=== PATIENT | male | born 1995 | race African-American/Black ===

== ENCOUNTER 2017-05-17 18:50 | Emergency (ER) | payer MEDICAID ==
[~2017-05-17] VITALS: Ht 172.7 cm; Wt 73.0 kg
[2017-05-17 20:21] LABS: BASOPHILS % 0.8 % (0.0-2.0); EOSINOPHILS % 3.5 % (0.0-5.0); HEMATOCRIT. 37.4 % (42.0-52.0); HEMOGLOBIN. 12.5 g/dL (14.0-18.0); LYMPHOCYTES % 28.8 % (20.0-50.0); MEAN CORPUSCULAR HEMOGLOBIN 28.1 pg (28.0-32.0); MEAN CORPUSCULAR VOLUME 83.9 fL (80.0-94.0); MEAN PLATELET VOLUME 9.4 fl (7.4-10.4); MONOCYTES % 7.4 % (2.0-8.0); NEUTROPHILS % 59.5 % (40.0-76.0); PLATELET 185 x1000/uL (130-400); RED BLOOD CELL COUNT 4.45 mill/uL (4.7-6.1); RED CELL DISTRIBUTION WIDTH 13.1 % (11.6-14.6)
[2017-05-17 20:32] LABS: CARBON DIOXIDE 26 mEq/L (21-32); CHLORIDE 104 mEq/L (98-107); TROPONIN I < 0.02 ng/mL (0.00-0.04)
[2017-05-17 20:48] LABS: *AMPHETAMINES SCREEN URINE NEGATIVE (NEGATIVE); *BARBITURATES SCREEN URINE NEGATIVE (NEGATIVE); *BENZODIAZEPINES SCREEN URINE NEGATIVE (NEGATIVE); *COCAINE SCREEN URINE NEGATIVE (NEGATIVE); CANNABINOID URINE SCREEN PRESUMTIVE POSITIVE (NEGATIVE); METHADONE URINE SCREEN NEGATIVE (NEGATIVE); OPIATES URINE SCREEN NEGATIVE (NEGATIVE); PHENCYCLIDINE URINE SCREEN NEGATIVE (NEGATIVE)
[2017-05-17 23:06] VITALS: BP 121/79
== END 2017-05-17 23:07 | disposition home or self-care (01) ==
LOC: ER 19:02
DX: R07.89 Other chest pain (principal); I34.0 Nonrheumatic mitral (valve) insufficiency
CPT/HCPCS: 36415; 71010; 80053; 80305; 84484; 85025; 85379; 93005; 99285

== ENCOUNTER 2018-08-30 10:40 | Emergency (ER) | payer MEDICAID ==
[~2018-08-30] VITALS: Ht 175.3 cm; Wt 64.0 kg
[2018-08-30 11:08] VITALS: BP 116/53
[2018-08-30 13:38] LABS: *AMPHETAMINES SCREEN URINE NEGATIVE (NEGATIVE); *BARBITURATES SCREEN URINE NEGATIVE (NEGATIVE); *BENZODIAZEPINES SCREEN URINE NEGATIVE (NEGATIVE); *COCAINE SCREEN URINE NEGATIVE (NEGATIVE)
[2018-08-30 13:39] LABS: CANNABINOID URINE SCREEN PRESUMTIVE POSITIVE (NEGATIVE); METHADONE URINE SCREEN NEGATIVE (NEGATIVE); OPIATES URINE SCREEN NEGATIVE (NEGATIVE); PHENCYCLIDINE URINE SCREEN NEGATIVE (NEGATIVE)
== END 2018-08-30 14:07 | disposition home or self-care (01) ==
LOC: ER 10:40
DX: F12.10 Cannabis abuse, uncomplicated (principal)
CPT/HCPCS: 80305; 99283

== ENCOUNTER 2018-09-15 17:29 | Emergency (ER) | payer MEDICAID ==
[~2018-09-15] VITALS: Ht 175.3 cm; Wt 63.5 kg
[2018-09-15 18:41] VITALS: BP 118/76
== END 2018-09-16 02:16 | disposition left against medical advice (07) ==
LOC: ER 17:29
DX: Z53.21 Procedure and treatment not carried out due to patient leaving prior to being seen by health care provider (principal); F17.200 Nicotine dependence, unspecified, uncomplicated

== ENCOUNTER 2019-02-24 01:38 | Emergency (ER) | payer MEDICAID ==
[~2019-02-24] VITALS: Ht 172.7 cm; Wt 67.0 kg
[2019-02-24] MEDS ORDERED: SODIUM CHLORIDE 0.9% 1,000 ML IV ONE (02:12)
[2019-02-24 02:42] LABS: BASOPHILS % 1.1 % (0.0-2.0); EOSINOPHILS % 3.4 % (0.0-5.0); HEMATOCRIT. 38.5 % (42.0-52.0); HEMOGLOBIN. 12.8 g/dL (14.0-18.0); LYMPHOCYTES % 38.4 % (20.0-50.0); MEAN CORPUSCULAR HEMOGLOBIN 28.7 pg (28.0-32.0); MEAN CORPUSCULAR VOLUME 86.1 fL (80.0-94.0); MEAN PLATELET VOLUME 9.5 fl (7.4-10.4); MONOCYTES % 7.7 % (2.0-8.0); NEUTROPHILS % 49.4 % (40.0-76.0); PLATELET 221 x1000/uL (130-400); RED BLOOD CELL COUNT 4.47 mill/uL (4.7-6.1); RED CELL DISTRIBUTION WIDTH 13.2 % (11.6-14.6)
[2019-02-24 02:43] LABS: CHLORIDE 106 mEq/L (98-107)
[2019-02-24 02:47] LABS: ETHANOL BLOOD < 10 mg/dL
[2019-02-24 04:21] LABS: CLARITY URINE CLEAR (CLEAR); COLOR URINE YELLOW (YELLOW); KETONES URINE TRACE (NEGATIVE); LEUKOCYTE ESTERASE URINE NEGATIVE (NEGATIVE); NITRITE URINE NEGATIVE (NEGATIVE); OCCULT BLOOD URINE NEGATIVE (NEGATIVE); PH URINE 6.5 (4.5-8.0); PROTEIN URINE TRACE (NEGATIVE); SPECIFIC GRAVITY URINE 1.025 (1.005-1.030)
[2019-02-24 04:31] LABS: *AMPHETAMINES SCREEN URINE NEGATIVE (NEGATIVE); *BARBITURATES SCREEN URINE NEGATIVE (NEGATIVE); *BENZODIAZEPINES SCREEN URINE NEGATIVE (NEGATIVE); *COCAINE SCREEN URINE NEGATIVE (NEGATIVE); CANNABINOID URINE SCREEN PRESUMTIVE POSITIVE (NEGATIVE); METHADONE URINE SCREEN NEGATIVE (NEGATIVE); OPIATES URINE SCREEN NEGATIVE (NEGATIVE); PHENCYCLIDINE URINE SCREEN NEGATIVE (NEGATIVE)
[2019-02-24] MEDS: POTASSIUM CHLORIDE 20MEQ TABLET SR PO NR ×2 (04:40→04:41)
[2019-02-24 04:44] VITALS: BP 108/52
== END 2019-02-24 04:54 | disposition home or self-care (01) ==
LOC: ER 01:38
DX: T44.3X1A Poisoning by other parasympatholytics [anticholinergics and antimuscarinics] and spasmolytics, accidental (unintentional), initial encounter (principal); Y92.9 Unspecified place or not applicable
CPT/HCPCS: 36415; 80053; 80305; 80307; 80320; 80329; 81003; 84443; 85025; 93005; 99284; J7030; G0480

== ENCOUNTER 2019-04-29 05:12 | Emergency (ER) | payer MEDICAID ==
[~2019-04-29] VITALS: Ht 172.7 cm; Wt 65.0 kg
[2019-04-29 07:12] LABS: CLARITY URINE CLEAR (CLEAR); COLOR URINE YELLOW (YELLOW); KETONES URINE NEGATIVE (NEGATIVE); LEUKOCYTE ESTERASE URINE NEGATIVE (NEGATIVE); NITRITE URINE NEGATIVE (NEGATIVE); OCCULT BLOOD URINE NEGATIVE (NEGATIVE); PH URINE 6.5 (4.5-8.0); PROTEIN URINE NEGATIVE (NEGATIVE); SPECIFIC GRAVITY URINE 1.012 (1.005-1.030); UROBILINOGEN URINE 0.2 E.U./dL (0.2-1.0)
[2019-04-29 07:26] LABS: *AMPHETAMINES SCREEN URINE NEGATIVE (NEGATIVE); *BARBITURATES SCREEN URINE NEGATIVE (NEGATIVE); *BENZODIAZEPINES SCREEN URINE NEGATIVE (NEGATIVE); *COCAINE SCREEN URINE NEGATIVE (NEGATIVE); METHADONE URINE SCREEN NEGATIVE (NEGATIVE); OPIATES URINE SCREEN NEGATIVE (NEGATIVE); PHENCYCLIDINE URINE SCREEN NEGATIVE (NEGATIVE)
[2019-04-29 07:28] LABS: CANNABINOID URINE SCREEN NEGATIVE (NEGATIVE)
[2019-04-29 08:22] LABS: EOSINOPHILS % 3.3 % (0.0-5.0); HEMATOCRIT. 36.3 % (42.0-52.0); HEMOGLOBIN. 12.2 g/dL (14.0-18.0); LYMPHOCYTES % 23.1 % (20.0-50.0); MEAN CORPUSCULAR HEMOGLOBIN 28.8 pg (28.0-32.0); MEAN CORPUSCULAR VOLUME 85.4 fL (80.0-94.0); MEAN PLATELET VOLUME 9.2 fl (7.4-10.4); MONOCYTES % 9.9 % (2.0-8.0); NEUTROPHILS % 62.7 % (40.0-76.0); PLATELET 219 x1000/uL (130-400); RED BLOOD CELL COUNT 4.25 mill/uL (4.7-6.1); RED CELL DISTRIBUTION WIDTH 13.4 % (11.6-14.6)
[2019-04-29 08:28] LABS: CHLORIDE 106 mEq/L (98-107)
[2019-04-29 08:32] LABS: ETHANOL BLOOD < 10 mg/dL
[2019-04-30 13:30] VITALS: BP 128/58
== END 2019-04-30 13:46 | disposition home or self-care (01) ==
LOC: ER 05:12
DX: F32.9 Major depressive disorder, single episode, unspecified (principal); F12.10 Cannabis abuse, uncomplicated; R45.851 Suicidal ideations; R44.0 Auditory hallucinations; Z59.0 Homelessness
CPT/HCPCS: 36415; 80305; 80320; 81003; 99284; G0480

== ENCOUNTER 2019-07-26 00:35 | Emergency (ER) | payer MEDICAID ==
[~2019-07-26] VITALS: Ht 172.7 cm; Wt 64.0 kg
[2019-07-26 00:53] VITALS: BP 123/76
== END 2019-07-26 05:59 | disposition left against medical advice (07) ==
LOC: ER 00:35
DX: Z53.21 Procedure and treatment not carried out due to patient leaving prior to being seen by health care provider (principal); Z88.0 Allergy status to penicillin
CPT/HCPCS: 93005

== ENCOUNTER 2019-09-10 08:49 | Emergency (ER) | payer MEDICAID | END 2019-09-10 09:42 | disposition left against medical advice (07) | LOC: ER 08:54 | DX: Z53.21 Procedure and treatment not carried out due to patient leaving prior to being seen by health care provider (principal) ==

== ENCOUNTER 2020-03-30 02:39 | Emergency (ER) | payer MEDICAID ==
[~2020-03-30] VITALS: Ht 175.3 cm; Wt 67.0 kg
[2020-03-30 04:02] VITALS: BP 137/81
== END 2020-03-30 04:14 | disposition left against medical advice (07) ==
LOC: ER 02:39
DX: R07.89 Other chest pain (principal); Z53.21 Procedure and treatment not carried out due to patient leaving prior to being seen by health care provider
CPT/HCPCS: 93005

== ENCOUNTER 2020-04-10 18:23 | Emergency (ER) | payer OTHER, MEDICAID ==
[~2020-04-10] VITALS: Ht 175.3 cm; Wt 66.0 kg
[2020-04-10] MEDS ORDERED: IBUPROFEN 600MG TABLET PO ONE (19:30)
[2020-04-10 20:35] VITALS: BP 135/80
== END 2020-04-10 20:35 | disposition home or self-care (01) ==
LOC: ER 18:23
DX: S62.396A Other fracture of fifth metacarpal bone, right hand, initial encounter for closed fracture (principal); W22.01XA Walked into wall, initial encounter; Y93.9 Activity, unspecified; Y92.9 Unspecified place or not applicable; Z88.0 Allergy status to penicillin
CPT/HCPCS: 29125; 73130; 99283

== ENCOUNTER 2020-06-11 22:20 | Emergency (ER) | payer OTHER, MEDICAID ==
[~2020-06-11] VITALS: Ht 175.3 cm; Wt 68.0 kg
[2020-06-11 22:23] VITALS: BP 144/77
== END 2020-06-11 22:45 | disposition left against medical advice (07) ==
LOC: ER 22:20
DX: Z53.21 Procedure and treatment not carried out due to patient leaving prior to being seen by health care provider (principal); Z88.0 Allergy status to penicillin
CPT/HCPCS: 93005

== ENCOUNTER 2020-06-15 14:35 | Emergency (ER) | payer OTHER, MEDICAID ==
[~2020-06-15] VITALS: Ht 175.3 cm; Wt 75.0 kg
[2020-06-15] MEDS ORDERED: ACETAMINOPHEN 325MG TABLET PO ONE (17:15)
[2020-06-15] MEDS ORDERED: HYDROCODONE/ACETAMINOPHEN 5/325MG TABLET PO ONE (18:45)
[2020-06-15 19:00] VITALS: BP 134/88
== END 2020-06-15 19:14 | disposition home or self-care (01) ==
LOC: ER 14:44
DX: S02.609A Fracture of mandible, unspecified, initial encounter for closed fracture (principal); F12.10 Cannabis abuse, uncomplicated; Z88.0 Allergy status to penicillin; X58.XXXA Exposure to other specified factors, initial encounter; Y93.89 Activity, other specified; Y92.89 Other specified places as the place of occurrence of the external cause; Y99.8 Other external cause status
CPT/HCPCS: 70110; 99283

== ENCOUNTER 2020-06-19 15:49 | Emergency (ER) | payer OTHER, MEDICAID ==
[~2020-06-19] VITALS: Ht 175.3 cm; Wt 68.0 kg
[2020-06-19 15:51] VITALS: BP 147/86
== END 2020-06-19 16:48 | disposition home or self-care (01) ==
LOC: ER 15:49
DX: R51.9 Headache, unspecified (principal); Z53.21 Procedure and treatment not carried out due to patient leaving prior to being seen by health care provider

== ENCOUNTER 2020-06-30 19:36 | Emergency (ER) | payer OTHER, MEDICAID ==
[~2020-06-30] VITALS: Ht 175.3 cm; Wt 68.0 kg
[2020-06-30 19:38] VITALS: BP 131/73
== END 2020-07-01 02:45 | disposition left against medical advice (07) ==
LOC: ER 19:36
DX: R07.89 Other chest pain (principal); Z53.21 Procedure and treatment not carried out due to patient leaving prior to being seen by health care provider
CPT/HCPCS: 93005

== ENCOUNTER 2020-09-01 18:48 | Emergency (ER) | payer OTHER, MEDICAID ==
[~2020-09-01] VITALS: Ht 170.2 cm; Wt 67.0 kg
[2020-09-01 19:41] VITALS: BP 129/64
[2020-09-01] MEDS ORDERED: TRIA15CR61 TP (20:02)
== END 2020-09-01 20:23 | disposition home or self-care (01) ==
LOC: ER 18:48
DX: L91.0 Hypertrophic scar (principal); F12.10 Cannabis abuse, uncomplicated; Z88.0 Allergy status to penicillin
CPT/HCPCS: 99282

== ENCOUNTER 2020-09-17 21:17 | Emergency (ER) | payer OTHER, MEDICAID ==
[~2020-09-17] VITALS: Ht 177.8 cm; Wt 70.0 kg
[~2020-09-17 21:17] MED LIST: TRIA15CR61 TP
[2020-09-17 21:57] VITALS: BP 115/76
== END 2020-09-17 22:36 | disposition home or self-care (01) ==
LOC: ER 21:17
DX: R42 Dizziness and giddiness (principal); F10.10 Alcohol abuse, uncomplicated; Y90.9 Presence of alcohol in blood, level not specified
CPT/HCPCS: 99281

== ENCOUNTER 2020-10-13 11:33 | Emergency (ER) | payer OTHER, MEDICAID ==
[~2020-10-13] VITALS: Ht 172.7 cm; Wt 68.0 kg
[2020-10-13] MEDS ORDERED: ACETAMINOPHEN 325MG TABLET PO ONE (12:30)
[2020-10-13 13:03] LABS: BASOPHILS % 1.1 % (0.0-2.0); EOSINOPHILS % 3.7 % (0.0-5.0); HEMATOCRIT. 36.9 % (42.0-52.0); HEMOGLOBIN. 11.9 g/dL (14.0-18.0); LYMPHOCYTES % 44.7 % (20.0-50.0); MEAN CORPUSCULAR HEMOGLOBIN 28.2 pg (28.0-32.0); MEAN CORPUSCULAR VOLUME 87.1 fL (80.0-94.0); MEAN PLATELET VOLUME 9.6 fl (7.4-10.4); MONOCYTES % 8.1 % (2.0-8.0); NEUTROPHILS % 42.4 % (40.0-76.0); PLATELET 165 x1000/uL (130-400); RED BLOOD CELL COUNT 4.23 mill/uL (4.7-6.1); RED CELL DISTRIBUTION WIDTH 14.2 % (11.6-14.6)
[2020-10-13 13:08] LABS: CHLORIDE 109 mEq/L (98-107)
[2020-10-13 15:22] VITALS: BP 104/60
== END 2020-10-13 15:25 | disposition home or self-care (01) ==
LOC: ER 11:33
DX: R68.84 Jaw pain (principal); R07.89 Other chest pain; F12.10 Cannabis abuse, uncomplicated; Z88.0 Allergy status to penicillin; Y04.0XXA Assault by unarmed brawl or fight, initial encounter; Y93.89 Activity, other specified; Y92.89 Other specified places as the place of occurrence of the external cause
CPT/HCPCS: 36415; 71045; 80053; 83880; 84484; 85025; 93005; 99285

== ENCOUNTER 2020-10-18 12:28 | Emergency (ER) | payer OTHER, MEDICAID ==
[~2020-10-18] VITALS: Ht 177.8 cm; Wt 68.0 kg
[2020-10-18] MEDS ORDERED: NAPROXEN 375MG TABLET PO ONE (13:00)
[2020-10-18] MEDS ORDERED: NAPR-1098 PO (13:15)
[2020-10-18 13:38] VITALS: BP 111/65
== END 2020-10-18 13:39 | disposition home or self-care (01) ==
LOC: ER 12:28
DX: R68.84 Jaw pain (principal)
CPT/HCPCS: 99282

== ENCOUNTER 2021-03-14 15:58 | Emergency (ER) | payer MEDICAID, OTHER ==
[~2021-03-14] VITALS: Ht 172.7 cm; Wt 65.0 kg
[~2021-03-14 15:58] MED LIST changes: +NAPR-1098 PO
[2021-03-14] MEDS ORDERED: ACETAMINOPHEN 325MG TABLET PO ONE (16:45)
[2021-03-14 17:54] VITALS: BP 106/83
== END 2021-03-14 17:55 | disposition home or self-care (01) ==
LOC: ER 15:58
DX: S00.81XA Abrasion of other part of head, initial encounter (principal); S03.2XXA Dislocation of tooth, initial encounter; M79.18 Myalgia, other site; Y08.89XA Assault by other specified means, initial encounter; Y93.89 Activity, other specified; Y92.9 Unspecified place or not applicable; Z88.0 Allergy status to penicillin
CPT/HCPCS: 99284

== ENCOUNTER 2021-06-03 13:46 | Emergency (ER) | payer MEDICAID ==
[~2021-06-03] VITALS: Ht 172.7 cm; Wt 59.0 kg
[2021-06-03 14:01] VITALS: BP 139/58
== END 2021-06-03 18:14 | disposition left against medical advice (07) ==
LOC: ER 13:46
DX: Z53.21 Procedure and treatment not carried out due to patient leaving prior to being seen by health care provider (principal); Z88.0 Allergy status to penicillin
CPT/HCPCS: 93005

== ENCOUNTER 2021-06-09 19:16 | Emergency (ER) | payer MEDICAID ==
[~2021-06-09] VITALS: Ht 175.3 cm; Wt 62.6 kg
[2021-06-09 20:02] VITALS: BP 110/67
== END 2021-06-09 22:39 | disposition left against medical advice (07) ==
LOC: ER 19:16
DX: R53.1 Weakness (principal)
CPT/HCPCS: 93005

== ENCOUNTER 2021-09-28 23:45 | Emergency (ER) | payer MEDICAID ==
[~2021-09-28] VITALS: Ht 175.3 cm; Wt 63.0 kg
[2021-09-29] MEDS ORDERED: IBUPROFEN 600MG TABLET PO STA (01:42)
[2021-09-29 01:52] VITALS: BP 102/54
[2021-09-29 03:22] LABS: BASOPHILS % 1.1 % (0.0-2.0); EOSINOPHILS % 7.2 % (0.0-5.0); HEMATOCRIT. 37.3 % (42.0-52.0); HEMOGLOBIN. 12.4 g/dL (14.0-18.0); LYMPHOCYTES % 48.6 % (20.0-50.0); MEAN CORPUSCULAR HEMOGLOBIN 28.4 pg (28.0-32.0); MEAN CORPUSCULAR VOLUME 85.6 fL (80.0-94.0); MEAN PLATELET VOLUME 9.1 fl (7.4-10.4); MONOCYTES % 9.4 % (2.0-8.0); NEUTROPHILS % 33.7 % (40.0-76.0); PLATELET 223 x1000/uL (130-400); RED BLOOD CELL COUNT 4.36 mill/uL (4.7-6.1)
[2021-09-29 03:29] LABS: CHLORIDE 108 mEq/L (98-107)
== END 2021-09-29 04:06 | disposition home or self-care (01) ==
LOC: ER 23:46
DX: R07.89 Other chest pain (principal); R06.02 Shortness of breath; F41.9 Anxiety disorder, unspecified; Z88.0 Allergy status to penicillin
CPT/HCPCS: 36415; 71045; 80053; 84484; 85025; 93005; 99285

== ENCOUNTER 2022-04-29 14:48 | Emergency (ER) | payer MEDICAID | END 2022-04-29 16:16 | disposition left against medical advice (07) | LOC: ER 15:15 | DX: Z53.21 Procedure and treatment not carried out due to patient leaving prior to being seen by health care provider (principal) ==

== ENCOUNTER 2022-07-01 15:12 | Emergency (ER) | payer MEDICARE, MEDICAID ==
[~2022-07-01] VITALS: Ht 175.3 cm; Wt 63.0 kg
[2022-07-01 15:27] VITALS: BP 106/73
[2022-07-01] MEDS ORDERED: CLAR10 MT (16:49)
== END 2022-07-01 17:14 | disposition home or self-care (01) ==
LOC: ER 15:45
DX: J06.9 Acute upper respiratory infection, unspecified (principal); F41.9 Anxiety disorder, unspecified; Z88.0 Allergy status to penicillin
CPT/HCPCS: 99282

== ENCOUNTER 2022-07-28 14:12 | Emergency (ER) | payer MEDICARE, MEDICAID ==
[~2022-07-28] VITALS: Ht 172.7 cm; Wt 70.0 kg
[~2022-07-28 14:12] MED LIST changes: +CLAR10 MT
[2022-07-28 14:44] VITALS: BP 114/64
== END 2022-07-28 14:56 | disposition left against medical advice (07) ==
LOC: ER 14:12
DX: Z53.21 Procedure and treatment not carried out due to patient leaving prior to being seen by health care provider (principal); F41.9 Anxiety disorder, unspecified; Z88.0 Allergy status to penicillin

== ENCOUNTER 2022-07-28 15:42 | Emergency (ER) | payer MEDICARE, MEDICAID ==
[~2022-07-28] VITALS: Ht 175.3 cm; Wt 62.0 kg
[2022-07-28 15:48] VITALS: BP 105/86
== END 2022-07-28 18:51 | disposition left against medical advice (07) ==
LOC: ER 15:42
DX: Z53.21 Procedure and treatment not carried out due to patient leaving prior to being seen by health care provider (principal); F41.9 Anxiety disorder, unspecified; Z88.0 Allergy status to penicillin

== ENCOUNTER 2022-09-17 18:56 | Emergency (ER) | payer MEDICARE, MEDICAID ==
[~2022-09-17] VITALS: Ht 175.3 cm; Wt 68.0 kg
[2022-09-17 19:27] VITALS: BP 128/85
== END 2022-09-17 20:00 | disposition left against medical advice (07) ==
LOC: ER 18:56
DX: Z53.21 Procedure and treatment not carried out due to patient leaving prior to being seen by health care provider (principal)

== ENCOUNTER 2022-09-26 10:24 | Emergency (ER) | payer MEDICARE, MEDICAID ==
[~2022-09-26] VITALS: Ht 172.7 cm; Wt 65.0 kg
[2022-09-26] MEDS ORDERED: KETOROLAC 15MG/ML VIAL IM ONE (13:45)
[2022-09-26] MEDS ORDERED: NAPR-681 MT (14:08)
[2022-09-26 14:14] VITALS: BP 110/64
== END 2022-09-26 14:15 | disposition home or self-care (01) ==
LOC: ER 10:34
DX: G62.9 Polyneuropathy, unspecified (principal); F41.9 Anxiety disorder, unspecified; Z88.0 Allergy status to penicillin; Z79.899 Other long term (current) drug therapy
CPT/HCPCS: 96372; 99283; J1885

== ENCOUNTER 2023-03-22 12:58 | Emergency (ER) | payer MEDICARE, MEDICAID ==
[~2023-03-22] VITALS: Ht 172.7 cm; Wt 67.0 kg
[~2023-03-22 12:58] MED LIST changes: +NAPR-681 MT
[2023-03-22 13:01] VITALS: PULSE 69; RESP 18
[2023-03-22 13:02] VITALS: BP 115/69; TEMP 98.8; O2SAT 100
[2023-03-22] MEDS ORDERED: NAPR375T5 MT (14:28)
== END 2023-03-22 15:37 | disposition home or self-care (01) ==
LOC: ER 12:58
DX: S93.401A Sprain of unspecified ligament of right ankle, initial encounter (principal); Z88.0 Allergy status to penicillin; W50.2XXA Accidental twist by another person, initial encounter; Y93.89 Activity, other specified; Y92.89 Other specified places as the place of occurrence of the external cause; Y99.8 Other external cause status
CPT/HCPCS: 73610; 73630; 99284

== ENCOUNTER 2023-07-08 18:02 | Emergency (ER) | payer MEDICARE, MEDICAID ==
[~2023-07-08] VITALS: Ht 175.3 cm; Wt 68.0 kg
[~2023-07-08 18:02] MED LIST changes: +NAPR375T5 MT
[2023-07-08 18:16] VITALS: BP 118/73; PULSE 49; RESP 16; TEMP 97.9; O2SAT 100
[2023-07-08 21:42] LABS: CLARITY URINE CLEAR (CLEAR); COLOR URINE YELLOW (YELLOW); GLUCOSE URINE NEGATIVE (NEGATIVE); KETONES URINE TRACE (NEGATIVE); LEUKOCYTE ESTERASE URINE NEGATIVE (NEGATIVE); NITRITE URINE NEGATIVE (NEGATIVE); OCCULT BLOOD URINE NEGATIVE (NEGATIVE); PH URINE 6.5 (4.5-8.0); PROTEIN URINE NEGATIVE (NEGATIVE); SPECIFIC GRAVITY URINE 1.029 (1.005-1.030)
[2023-07-08] MEDS ORDERED: IBUP-2029 MT (22:46)
[2023-07-11 13:11] LABS: CHLAMYDIA TRACHOMATIS NAA Negative (Negative); NEISSERIA GONORRHOEAE NAA Negative (Negative)
== END 2023-07-09 00:31 | disposition home or self-care (01) ==
LOC: ER 18:02
DX: S00.83XA Contusion of other part of head, initial encounter (principal); F41.9 Anxiety disorder, unspecified; Z79.899 Other long term (current) drug therapy; X58.XXXA Exposure to other specified factors, initial encounter; Y93.89 Activity, other specified; Y92.89 Other specified places as the place of occurrence of the external cause; Y99.8 Other external cause status
CPT/HCPCS: 36415; 70100; 81003; 87491; 87591; 99284

== ENCOUNTER 2023-07-13 17:18 | Emergency (ER) | payer MEDICARE, MEDICAID ==
[~2023-07-13] VITALS: Ht 175.3 cm; Wt 68.0 kg
[~2023-07-13 17:18] MED LIST changes: +IBUP-2029 MT
[2023-07-13 17:48] VITALS: BP 120/69; PULSE 67; RESP 16; TEMP 98.8; O2SAT 100
== END 2023-07-13 19:00 | disposition home or self-care (01) ==
LOC: ER 17:18
DX: Z11.3 Encounter for screening for infections with a predominantly sexual mode of transmission (principal); Z88.0 Allergy status to penicillin
CPT/HCPCS: 99281

== ENCOUNTER 2023-07-21 12:21 | Emergency (ER) | payer MEDICARE, MEDICAID ==
[~2023-07-21] VITALS: Ht 175.3 cm; Wt 63.0 kg
[2023-07-21 13:01] VITALS: O2SAT 100
[2023-07-21 15:29] VITALS: BP 116/67; PULSE 66; RESP 18; TEMP 97.9
== END 2023-07-21 15:31 | disposition home or self-care (01) ==
LOC: ER 12:21
DX: Z11.3 Encounter for screening for infections with a predominantly sexual mode of transmission (principal); Z88.0 Allergy status to penicillin; Z53.21 Procedure and treatment not carried out due to patient leaving prior to being seen by health care provider
CPT/HCPCS: 99281